=== PATIENT | female | born 1995 | race Caucasian/White ===

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

== ENCOUNTER → 2017-02-26 | Outpatient (REF) | payer OTHER ==
[2017-02-28 14:08] LABS: Candida species Negative (Negative); Gardnerella vaginalis Positive (Negative); Trichamonas vaginalis Negative (Negative)
== END ==
LOC: M LAB REF 16:08
PROVIDERS: ATTEND Nurse Practitioner Women's Health
DX: R30.0 Dysuria (principal); N76.0 Acute vaginitis

== ENCOUNTER → 2017-04-09 | Outpatient (CLI) | payer OTHER ==
[2017-04-09 08:50] LABS: MEAN CORPUSCULAR HEMOGLOBIN 30.1 pg (27.0-33.0); MEAN CORPUSCULAR HGB CONC 34.6 g/dl (32.0-36.5); MEAN CORPUSCULAR VOLUME 86.9 fl (80.0-96.0); RED CELL DISTRIBUTION WIDTH 11.6 % (11.5-14.5); WHITE BLOOD COUNT 7.1 10^3/uL (4.0-10.0)
[2017-04-09 09:25] LABS: ANION GAP 10 MEQ/L (8-16); BLOOD UREA NITROGEN 10 MG/DL (7-18); CALCIUM LEVEL 9.4 MG/DL (8.5-10.1); CARBON DIOXIDE LEVEL 28 MEQ/L (21-32); CHLORIDE LEVEL 103 MEQ/L (98-107); CREATININE FOR GFR 0.78 MG/DL (0.55-1.02); GLUCOSE, FASTING 80 MG/DL (70-105); POTASSIUM SERUM 3.7 MEQ/L (3.5-5.1); SODIUM LEVEL 141 MEQ/L (136-145); T UPTAKE 34 % (30-39); THYROXINE (T4) 8.9 UG/DL (6.0-11.6)
== END ==
LOC: M LAB 08:17
PROVIDERS: ATTEND Nurse Practitioner Family
DX: R53.83 Other fatigue (principal)

== ENCOUNTER → 2017-12-03 | Outpatient (REF) | payer OTHER | LOC: M SFHCCLAY 12-06 11:26 | DX: R30.0 Dysuria (principal); N76.0 Acute vaginitis | CPT/HCPCS: 87086 ==

== ENCOUNTER → 2017-12-16 | Outpatient (REF) | payer OTHER ==
[2017-12-17 14:28] LABS: CHLAMYDIA DNA AMPLIFICATION NEGATIVE (NEGATIVE); GC DNA AMPLIFICATION NEGATIVE (NEGATIVE)
== END ==
LOC: M SFHCCLAY 15:10
DX: N76.1 Subacute and chronic vaginitis (principal)

== ENCOUNTER → 2018-01-08 | Outpatient (REF) | payer OTHER ==
[2018-01-08 20:03] LABS: CHLAMYDIA DNA AMPLIFICATION NEGATIVE (NEGATIVE); GC DNA AMPLIFICATION NEGATIVE (NEGATIVE)
== END ==
LOC: M LAB REF 16:52
DX: N76.0 Acute vaginitis (principal)

== ENCOUNTER → 2018-01-18 | Outpatient (CLI) | payer OTHER ==
[2018-01-18 12:52] LABS: BASO % 0.3 % (0.0-1.0); EOS # 0.1 10^3/uL (0.0-0.50); HEMATOCRIT 37.3 % (36.0-47.0); HEMOGLOBIN 13.3 g/dl (12.0-15.5); IMMATURE GRANULOCYTE % 0.4 % (0-3.0); LYMPH # 1.8 10^3/uL (1.5-6.5); LYMPH % 17.2 % (24.0-44.0); MEAN CORPUSCULAR HEMOGLOBIN 30.9 pg (27.0-33.0); MEAN CORPUSCULAR HGB CONC 35.7 g/dl (32.0-36.5); MEAN CORPUSCULAR VOLUME 86.5 fl (80.0-96.0); MONO # 0.5 10^3/uL (0.0-0.8); NEUTROPHILS # 7.9 10^3/uL (1.8-7.7); NEUTROPHILS % 76.1 % (36.0-66.0); PLATELET COUNT, AUTOMATED 294 10^3/uL (150-450); RED BLOOD COUNT 4.31 10^6/uL (4.00-5.40); RED CELL DISTRIBUTION WIDTH 11.6 % (11.5-14.5); WHITE BLOOD COUNT 10.3 10^3/uL (4.0-10.0)
[2018-01-18 14:40] LABS: CHLAMYDIA DNA AMPLIFICATION NEGATIVE (NEGATIVE); GC DNA AMPLIFICATION NEGATIVE (NEGATIVE)
[2018-01-19 11:44] LABS: RUBELLA IgG QUALITATIVE IMMUNE (IMMUNE)
[2018-01-19 12:15] LABS: HEPATITIS C VIRUS ABY INDEX 0.3 INDEX (<0.8)
[2018-01-19 14:20] LABS: HBsAg Prenatal NEGATIVE (NEGATIVE)
[2018-01-19 14:48] LABS: HIV 1&2 SCREEN CENTAUR NEGATIVE (NEGATIVE)
== END ==
LOC: M LAB 12:28
DX: O30.041 Twin pregnancy, dichorionic/diamniotic, first trimester (principal); Z3A.08 8 weeks gestation of pregnancy
CPT/HCPCS: 86762

== ENCOUNTER 2018-02-16 13:37 | Emergency (ER) | payer OTHER, MEDICAID ==
[2018-02-16 14:25] LABS: BASO % 0.3 % (0.0-1.0); EOS # 0.2 10^3/uL (0.0-0.50); EOS % 1.4 % (0.0-3.0); HEMATOCRIT 35.8 % (36.0-47.0); HEMOGLOBIN 12.8 g/dl (12.0-15.5); IMMATURE GRANULOCYTE % 0.4 % (0-3.0); LYMPH # 1.8 10^3/uL (1.5-6.5); LYMPH % 15.8 % (24.0-44.0); MEAN CORPUSCULAR HEMOGLOBIN 30.8 pg (27.0-33.0); MEAN CORPUSCULAR HGB CONC 35.8 g/dl (32.0-36.5); MEAN CORPUSCULAR VOLUME 86.1 fl (80.0-96.0); MONO # 0.6 10^3/uL (0.0-0.8); NEUTROPHILS # 8.9 10^3/uL (1.8-7.7); NEUTROPHILS % 77.1 % (36.0-66.0); PLATELET COUNT, AUTOMATED 298 10^3/uL (150-450); RED BLOOD COUNT 4.16 10^6/uL (4.00-5.40); RED CELL DISTRIBUTION WIDTH 11.9 % (11.5-14.5); WHITE BLOOD COUNT 11.5 10^3/uL (4.0-10.0)
[2018-02-16 14:43] LABS: ANION GAP 8 MEQ/L (8-16); BLOOD UREA NITROGEN 6 MG/DL (7-18); CALCIUM LEVEL 8.8 MG/DL (8.5-10.1); CARBON DIOXIDE LEVEL 25 MEQ/L (21-32); CHLORIDE LEVEL 106 MEQ/L (98-107); CREATININE FOR GFR 0.61 MG/DL (0.55-1.30); GLUCOSE, FASTING 98 MG/DL (70-100); POTASSIUM SERUM 3.9 MEQ/L (3.5-5.1); SODIUM LEVEL 139 MEQ/L (136-145)
[2018-02-16 14:52] LABS: KETONE, URINE AUTO RFX NEGATIVE (NEGATIVE); LEUKOCYTE ESTERASE UR AUTO RFX NEGATIVE (NEGATIVE); NITRITE, URINE AUTO RFX NEGATIVE (NEGATIVE); RBC, URINE AUTO RFX 1 /HPF (0-3); SPECIFIC GRAVITY UR AUTO RFX 1.006 (1.002-1.035); SQUAM EPITHELIAL CELL UR AURFX 3 /HPF (0-6); WBC, URINE AUTO RFX 3 /HPF (0-3)
[2018-02-16] MEDS: METOCLOPRAMIDE INJ 10MG/2ML VIAL (J2765) IV (16:47)
[2018-02-16] MEDS: NS 1,000 ML IV (16:49)
== END 2018-02-16 18:20 | disposition home or self-care (01) ==
LOC: M ED 13:37
DX: O26.891 Other specified pregnancy related conditions, first trimester (principal); R10.2 Pelvic and perineal pain; Z3A.13 13 weeks gestation of pregnancy; O99.281 Endocrine, nutritional and metabolic diseases complicating pregnancy, first trimester; E86.0 Dehydration; Z79.899 Other long term (current) drug therapy
CPT/HCPCS: J2765

== ENCOUNTER → 2018-03-14 | Outpatient (REF) | payer OTHER ==
[2018-03-14 17:55] LABS: AMORPHOUS SEDIMENT MODERATE (NEGATIVE); APPEARANCE, URINE CLOUDY (CLEAR); BACTERIA, URINE AUTO 1+ (NEGATIVE); BILIRUBIN, URINE AUTO NEGATIVE (NEGATIVE); BLOOD, URINE BLOOD NEGATIVE (NEGATIVE); COLOR, URINE YELLOW (YELLOW); GLUCOSE, URINE (UA) AUTO NEGATIVE (NEGATIVE); KETONE, URINE AUTO NEGATIVE (NEGATIVE); LEUKOCYTE ESTERASE, URINE AUTO NEGATIVE (NEGATIVE); MUCUS, URINE SMALL (NEGATIVE); NITRITE, URINE AUTO NEGATIVE (NEGATIVE); PROTEIN, URINE AUTO NEGATIVE (NEGATIVE); RBC, URINE AUTO 0 /HPF (0-3); SPECIFIC GRAVITY URINE AUTO 1.015 (1.002-1.035); SQUAMOUS EPITHELIAL CELL UR AU 2 /HPF (0-6); UROBILINOGEN, URINE AUTO 0.2 mg/dL (0.0-2.0); WBC, URINE AUTO 0 /HPF (0-3)
[2018-03-14 21:06] LABS: CHLAMYDIA DNA AMPLIFICATION NEGATIVE (NEGATIVE); GC DNA AMPLIFICATION NEGATIVE (NEGATIVE)
== END ==
LOC: M SFHCCLAY 11:55
DX: R30.0 Dysuria (principal); N89.8 Other specified noninflammatory disorders of vagina
CPT/HCPCS: 81001

== ENCOUNTER → 2018-03-24 | Outpatient (CLI) | payer OTHER | LOC: M RAD 09:58 | DX: Z34.82 Encounter for supervision of other normal pregnancy, second trimester (principal) ==

== ENCOUNTER → 2018-04-13 | Outpatient (CLI) | payer OTHER, MEDICAID | LOC: M RAD 11:07 | DX: O30.042 Twin pregnancy, dichorionic/diamniotic, second trimester (principal); Z3A.20 20 weeks gestation of pregnancy | CPT/HCPCS: 76816 ==

== ENCOUNTER → 2018-05-06 | Outpatient (CLI) | payer OTHER | LOC: M RAD 10:23 | DX: O30.042 Twin pregnancy, dichorionic/diamniotic, second trimester (principal); Z3A.24 24 weeks gestation of pregnancy | CPT/HCPCS: 76816 ==

== ENCOUNTER → 2018-05-12 | Outpatient (CLI) | payer OTHER, MEDICAID ==
[2018-05-12 13:06] LABS: HEMATOCRIT 31.7 % (36.0-47.0); HEMOGLOBIN 10.9 g/dl (12.0-15.5); MEAN CORPUSCULAR HGB CONC 34.4 g/dl (32.0-36.5); MEAN CORPUSCULAR VOLUME 87.3 fl (80.0-96.0); PLATELET COUNT, AUTOMATED 309 10^3/uL (150-450); RED BLOOD COUNT 3.63 10^6/uL (4.00-5.40); RED CELL DISTRIBUTION WIDTH 11.9 % (11.5-14.5)
[2018-05-12 13:22] LABS: GLUCOSE CHALLENGE TEST 1 HOUR 127 MG/DL (LESS THAN 140)
== END ==
LOC: M LAB 11:03
DX: O30.042 Twin pregnancy, dichorionic/diamniotic, second trimester (principal); Z3A.00 Weeks of gestation of pregnancy not specified
CPT/HCPCS: 82950

== ENCOUNTER → 2018-06-03 | Outpatient (CLI) | payer OTHER | LOC: M RAD 10:14 | DX: O30.042 Twin pregnancy, dichorionic/diamniotic, second trimester (principal); O32.2XX2 Maternal care for transverse and oblique lie, fetus 2; Z3A.27 27 weeks gestation of pregnancy | CPT/HCPCS: 76816 ==

== ENCOUNTER → 2018-06-24 | Outpatient (CLI) | payer OTHER ==
[~2018-06-24] MED LIST: IRON27TA2 PO; OMEP40CA2 PO; PREN27TA3 PO; RANI1SYP PO; TUMS500C PO
--- NOTE | 2018-06-24 12:45 | REP ---
Clinical: Twin gestation. Growth evaluation Comparison: 06/03/2018 . Findings: Examination demonstrates diamniotic dichorionic twin gestation. Cervix measures 3.1 cm in length and appears closed. Concordant growth is noted. Gestational age by LMP at 31 weeks 1 day with estimated date of delivery 08/25/2018 . TWIN A: Twin A identified in cephalic presentation along the maternal left side. Placenta is noted posterior fundal and grade 0 without evidence for placenta previa or abruption. motion is appreciated. Amniotic fluid volume is normal and the deepest pocket measures 3.6 cm. FHR equals 152 beats per minute. BPD 8.4 cm 33 weeks 5 days HC 30.1 cm 33 weeks 3 days AC 26.1 cm 30 weeks 2 days FL 5.7 cm 29 weeks 6 days HL 5.3 cm 30 weeks 4 days HC/AC ratio 1.15 Gestational age by current measurements: 31 weeks 4 days . Estimated weight 1616 grams ( 34th percentile). Limited anatomical assessment without obvious abnormality. ------- TWIN B: Twin B identified in transverse (head to maternal left) presentation along the maternal right side. Placenta is noted posterior fundal and grade 0 without evidence for placenta previa or abruption. motion is appreciated. Amniotic fluid volume is normal and the deepest pocket measures 4.4 cm. FHR equals 156 beats per minute. BPD 7.8 cm 31 weeks 2 days HC 29.2 cm 32 weeks 1 day AC 26.5 cm 30 weeks 4 days FL 5.4 cm 28 weeks 3 days HL 4.7 cm 27 weeks 6 days HC/AC ratio 1.10 Gestational age by current measurements: 30 weeks 0 days . Estimated weight 1512 grams ( 22nd percentile). Limited anatomical assessment without obvious abnormality. Impression: Diamniotic dichorionic twin gestation demonstrating appropriate concordant growth. No gross abnormalities are identified. Electronically Signed by Mitul Santillan MD 06/24/2018 12:36 P
== END ==
LOC: M RAD 11:24
PROVIDERS: ATTEND Obstetrics & Gynecology
DX: O30.042 Twin pregnancy, dichorionic/diamniotic, second trimester (principal); Z3A.31 31 weeks gestation of pregnancy

== ENCOUNTER → 2018-07-13 | Outpatient (CLI) | payer OTHER ==
--- NOTE | 2018-07-14 02:03 | REP ---
Clinical: Twin gestation. Growth evaluation Comparison: 06/24/2018 . Findings: Examination demonstrates diamniotic dichorionic twin gestation. Cervix appears closed. Concordant growth is noted. Gestational age by LMP at 33 weeks 6 days with estimated date of delivery 08/25/2018 . TWIN A: Twin A identified in cephalic presentation along the maternal left side. Placenta is noted fundal and grade grade II without evidence for placenta previa or abruption. motion is appreciated. Amniotic fluid volume is normal and the deepest pocket measures 4.0 cm. FHR equals 157 beats per minute. BPD 9.0 cm 36 weeks 3 days HC 31.3 cm 35 weeks 0-day AC 27.4 cm 31 weeks 3 days FL 6.0 cm 31 weeks 2 days HL 5.3 cm 38 weeks 6 days HC/AC ratio 1.14 Gestational age by current measurements: 33 weeks 0 days . Estimated weight 1915 grams ( 15th percentile). Biophysical profile score equals 6/8 (breathing 0). Umbilical cord SD ratio: 2.37 ------- TWIN B: Twin B identified in breech presentation along the maternal right side. Placenta is noted fundal and grade grade II without evidence for placenta previa or abruption. motion is appreciated. Amniotic fluid volume is normal and the deepest pocket measures 3.4 cm. FHR equals 155 beats per minute. BPD 8.4 cm 33 weeks 6 days HC 29.9 cm 33 weeks 0 day AC 27.8 cm 31 weeks 6 day FL 6.0 cm 31 weeks 0 days HL 5.1 cm 29 weeks 5 days HC/AC ratio 1.07 Gestational age by current measurements: 31 weeks 6 days . Estimated weight 1857 grams ( 10th percentile). Biophysical profile score equals 8/8. Umbilical cord SD ratio: 2.00 Impression: 1. Diamniotic dichorionic twin gestation demonstrating less than expected but concordant growth. 2. Twin A biophysical profile score equals 6/8 (breathing - 0) Electronically Signed by Mitul Santillan MD 07/14/2018 01:54 A
== END ==
LOC: M RAD 09:33
PROVIDERS: ATTEND Obstetrics & Gynecology
DX: O30.043 Twin pregnancy, dichorionic/diamniotic, third trimester (principal); Z3A.33 33 weeks gestation of pregnancy; O32.1XX2 Maternal care for breech presentation, fetus 2

== ENCOUNTER 2018-07-17 14:31 | Outpatient (CLI) | payer OTHER ==
[~2018-07-17] VITALS: Ht 165.1 cm; Wt 102.6 kg
== END 2018-07-17 16:30 | disposition home or self-care (01) ==
LOC: M LDO 14:31
PROVIDERS: ATTEND Specialist
DX: O26.893 Other specified pregnancy related conditions, third trimester (principal); Z3A.34 34 weeks gestation of pregnancy; R60.0 Localized edema
CPT/HCPCS: 59025; G0378; G0463

== ENCOUNTER → 2018-07-20 | Outpatient (CLI) | payer OTHER ==
[~2018-07-20] MED LIST changes: +COLA100C5 PO; +DIFL150T PO; +IBUP80TA PO; +METR375C3 PO; +OXYC1TAB23 PO; +PERCOCET PO; +PRENTAB9 PO; +ZANTTAB PO
--- NOTE | 2018-07-20 23:00 | REP ---
Clinical: Twin gestation. well-being Comparison: 07/13/2018 . Findings: Examination demonstrates diamniotic dichorionic twin gestation. Cervix appears closed. Gestational age by LMP at 34 weeks 6 days with estimated date of delivery 08/25/2018 . TWIN A: Twin A identified in cephalic presentation along the maternal left side. Placenta is noted fundal and grade II without evidence for placenta previa or abruption. motion is appreciated. Amniotic fluid volume is normal and the deepest pocket measures 6.2 cm. FHR equals 153 beats per minute. BPP 8/8. Umbilical cord SD ratio: 2.33 ------- TWIN B: Twin B identified in breech presentation along the maternal right side. Placenta is noted fundal and grade II without evidence for placenta previa or abruption. motion is appreciated. Amniotic fluid volume is normal and the deepest pocket measures 5.5 cm. FHR equals 147 beats per minute. BPP 8/8 Umbilical cord SD ratio: 2.87 Impression: Diamniotic dichorionic twin gestation demonstrating normal amniotic fluid volumes and normal biophysical profile scores. Electronically Signed by Mitul Santillan MD 07/20/2018 10:51 P
== END ==
LOC: M RAD 09:06
PROVIDERS: ATTEND Obstetrics & Gynecology
DX: O30.043 Twin pregnancy, dichorionic/diamniotic, third trimester (principal); Z3A.34 34 weeks gestation of pregnancy

== ENCOUNTER → 2018-07-21 | Outpatient (REF) | payer OTHER ==
[2018-07-21 15:18] LABS: CHLAMYDIA DNA AMPLIFICATION NEGATIVE (NEGATIVE); GC DNA AMPLIFICATION NEGATIVE (NEGATIVE)
== END ==
LOC: M LAB REF 12:54
PROVIDERS: ATTEND Advanced Practice Midwife
DX: Z34.83 Encounter for supervision of other normal pregnancy, third trimester (principal); Z11.3 Encounter for screening for infections with a predominantly sexual mode of transmission

== ENCOUNTER 2018-07-22 14:11 | Outpatient (CLI) | payer OTHER ==
[~2018-07-22] VITALS: Ht 165.1 cm; Wt 104.1 kg
[~2018-07-22 14:11] MED LIST changes: -COLA100C5 PO; -DIFL150T PO; -IBUP80TA PO; -METR375C3 PO; -OXYC1TAB23 PO; -PERCOCET PO; -PRENTAB9 PO; -ZANTTAB PO
[2018-07-22 14:47] VITALS: BP 121/81
[2018-07-22] MEDS ORDERED: METR375C3 PO (14:50)
[2018-07-22] MEDS ORDERED: DIFL150T PO (14:53)
[2018-07-22 15:33] VITALS: BP 125/72
[2018-07-22 17:21] VITALS: BP 132/68
[2018-07-22 18:44] VITALS: BP 112/67
--- NOTE | 2018-07-22 19:11 | REPVR ---
EXAM: US Biophysical Profile Without Non-Stress Test EXAM DATE/TIME: 07/22/2018 5:55 PM CLINICAL HISTORY: 22 years old, female; Signs and symptoms; Other: ? Prom? ; ; Additional info: Twin gestation, R/O lof TECHNIQUE: US biophysical profile without non-stress testing. COMPARISON: US BPP W/O NON STRESS TEST 07/20/2018 9:13 AM FINDINGS: Breathin/2 fetus A and B Gross body movements: 2/2 fetus A and B tone: 2/2 fetus A and B Qualitative amniotic fluid: 2/2 fetus A and B heart rate 144 beats per minute for fetus A and 150 beats per minute for fetus B IMPRESSION: 8 out of 8 for both fetus A and B. Electronically signed by: Johnie Esquivel On 07/22/2018 19:10:36 PM
[2018-07-22 19:21] VITALS: BP 138/71
--- NOTE | 2018-07-22 19:23 | IPNPDOC ---
Text Note Date of Service The patient was seen on 07/22/18. NOTE 22yo G1 MACARIO 08/25/18, di/di twin gestation. . Evaluated in office yesterday to r/o ROM. Found to have BV and yeast. Currently tx with metronidazole and diflucan Reports continued questionable LOF. States sporadic UC SSE copious creamy discharge, pH 4.5, + hyphae, + clue Neg ferning BPP 8/8 x 2 with qualitative adequate fluid Per consult Dr Jiménez, discharged home. Pt instructed to keep appt . After hours access, PTL, daily FKC, wanrings reviewed. VS,Fishbone, I+O VS, Fishbone, I+O Vital Signs Date Time Temp Pulse Resp B/P (MAP) Pulse Ox O2 Delivery O2 Flow Rate FiO2 07/22/18 17:21 87 18 132/68 (89) 07/22/18 14:47 98.8 Caprice Beltran CNM Jul 22, 2018 19:23
== END 2018-07-22 19:25 | disposition home or self-care (01) ==
LOC: M LDO 14:11
PROVIDERS: ATTEND Advanced Practice Midwife
DX: O23.593 Infection of other part of genital tract in pregnancy, third trimester (principal); Z79.2 Long term (current) use of antibiotics; O30.043 Twin pregnancy, dichorionic/diamniotic, third trimester; Z3A.00 Weeks of gestation of pregnancy not specified
CPT/HCPCS: 59025; 76815; 76819; 76820; G0378; G0463

== ENCOUNTER → 2018-07-26 | Outpatient (CLI) | payer OTHER ==
[~2018-07-26] MED LIST changes: +DIFL150T PO; +METR375C3 PO; +ZANTTAB PO
--- NOTE | 2018-07-26 16:16 | REP ---
TWIN OB ULTRASOUND AND BIOPHYSICAL PROFILE: Real-time sonographic evaluation of the gravid uterus is performed. There is a living diamniotic dichorionic twin gestation. Placentas are anterior and fundal and are grade 2 with no previa or abruption. FETUS A: heart rate 153 beats per minute. Amniotic fluid appears within normal limits with the deepest pocket of fluid 8.9 cm. Biophysical profile score 8/8. S/D ratio 2.60 and RI 0.62. position vertex on the maternal left side. FETUS B: heart rate 150 beats per minute. Amniotic fluid within normal limits with deepest pocket of fluid 6.0. Biophysical profile score 8/8. S/D ratio 2.48 and RI 0.60. position breech on the maternal right side. Electronically Signed by Lior Call MD 07/26/2018 04:23 P
== END ==
LOC: M RAD 15:29
PROVIDERS: ATTEND Obstetrics & Gynecology
DX: O30.043 Twin pregnancy, dichorionic/diamniotic, third trimester (principal); O32.1XX2 Maternal care for breech presentation, fetus 2

== ENCOUNTER → 2018-08-01 | Outpatient (CLI) | payer OTHER ==
--- NOTE | 2018-08-02 04:39 | REP ---
Clinical: Twin gestation. well-being Comparison: 07/26/2018 . Findings: Examination demonstrates diamniotic dichorionic twin gestation. Cervix appears closed. Gestational age by LMP at 36 weeks 4 days with estimated date of delivery 08/25/2018 . TWIN A: Twin A identified in cephalic presentation along the maternal left side. Placenta is noted anterofundal and grade II/III without evidence for placenta previa or abruption. motion is appreciated. Amniotic fluid volume is normal and the deepest pocket measures 4.2 cm. FHR equals 153 beats per minute. BPP 8/8. Umbilical cord SD ratio: 2.34 ------- TWIN B: Twin B identified in breech presentation along the maternal right side. Placenta is noted anterofundal and grade II/III without evidence for placenta previa or abruption. motion is appreciated. Amniotic fluid volume is normal and the deepest pocket measures 5.6 cm. FHR equals 144 beats per minute. BPP 8/8 Umbilical cord SD ratio: 3.22 Impression: Diamniotic dichorionic twin gestation demonstrating normal amniotic fluid volumes and normal biophysical profile scores. Electronically Signed by Mitul Santillan MD 08/02/2018 04:30 A
== END ==
LOC: M RAD 07:56
PROVIDERS: ATTEND Obstetrics & Gynecology
DX: O30.043 Twin pregnancy, dichorionic/diamniotic, third trimester (principal)

== ENCOUNTER 2018-08-04 05:17 | Inpatient (IN) | payer OTHER ==
[2018-08-04] VITALS (8 sets, daily range): BP systolic 115–137; BP diastolic 57–86
[~2018-08-04] VITALS: Ht 165.1 cm; Wt 106.6 kg
[2018-08-04] MEDS ORDERED: COLA100C5 PO ×2 (05:34→09:13)
[2018-08-04] MEDS ORDERED: BICITRA 30ML SOLN UDC PO ONE (06:00)
[2018-08-04] MEDS ORDERED: LR 1,000 ML IV ONE (06:00)
[2018-08-04 06:25] LABS: HEMATOCRIT 30.3 % (36.0-47.0); HEMOGLOBIN 9.8 g/dl (12.0-15.5); MEAN CORPUSCULAR HGB CONC 32.3 g/dl (32.0-36.5); MEAN CORPUSCULAR VOLUME 74.1 fl (80.0-96.0); PLATELET COUNT, AUTOMATED 293 10^3/uL (150-450); RED BLOOD COUNT 4.09 10^6/uL (4.00-5.40); WHITE BLOOD COUNT 12.9 10^3/uL (4.0-10.0)
[2018-08-04] MEDS ORDERED: LR 1,000 ML IV SCH (07:00)
[2018-08-04] MEDS ORDERED: MORPHINE PRES-FREE INJ 10 MG/10 ML VIAL (J2274) As Ordered ONE (08:02)
[2018-08-04] MEDS ORDERED: OXYTOCIN DRIP 30 UNITS in APPROPRIATE DILUENT 1 EA IV SCH (08:02)
[2018-08-04] MEDS ORDERED: OXYTOCIN INJ 10 UNITS/ML VIAL (J2590) As Ordered ONE (08:02)
[2018-08-04] MEDS ORDERED: diphenhydrAMINE INJ 50MG/ML VIAL (J1200) IV PRN (08:04)
[2018-08-04] MEDS ORDERED: METOCLOPRAMIDE INJ 10MG/2ML VIAL (J2765) IV PRN (08:04)
[2018-08-04] MEDS ORDERED: NALOXONE INJ 0.4 MG/1 ML VIAL (J2310) IV PRN ×2 (08:04)
[2018-08-04] MEDS ORDERED: NALBUPHINE HCL 10 MG/ML AMP (J2300) IV PRN (08:04)
[2018-08-04] MEDS ORDERED: ONDANSETRON 4MG/2ML VIAL (J2405) IV PRN ×3 (08:04→09:30)
[2018-08-04] MEDS ORDERED: PHENYLephrine HCL 500 MCG/5 ML (100MCG/ML) SYRINGE (J2370) As Ordered ONE (08:08)
--- NOTE | 2018-08-04 08:09 | NUR ---
Operative Note Date of procedure: 08/04/18 Procedure: Primary low-transverse section Anesthesia: Spinal w/ Duramorph Preoperative diagnoses: 37+0 weeks gestation Di/Di twin gestation growth restriction of Twin B malpresentation Postoperative diagnoses: same Indication: 23yo with di/di twins. 37+0 weeks. growth restriction of Twin B. Vertex/Breech presentation. Primary surgeon: Seymour Jiménez D.O., F. A.C.OKatelynnG. Physician Coder: Ward Jose MD FACOG (essential role in surgical site exposure and delivery of both twins) Estimated blood loss: 600 ml IV fluids administered: 1700 ml crystalloid Drains: Boles catheter. Urine output: 200 ml [place] data: Twin A, Female Apgars 9 and 9. Birthweight 2330g , 5lbs 2oz. Twin B, Apgars 9 and 9. Birthweight Female 1820g, 4lbs 0oz. Preoperative/prophylactic antibiotics: Ancef 2 g IV (given within 30 minutes prior to surgical start time). Intraoperative findings: Vertex / breech presentation. Normal uterus and bilateral adnexa/ovaries. Specimen(s): Placenta (dichorionic/diamniotic) Procedure: The patient was counseled and consented on the risks, benefits, indications and alternatives of the procedure. Informed consent was obtained and placed in the c cole. She was taken to the operating room with an IV running. She was placed on the operating table. Spinal anesthesia was administered without any difficulty and found to be adequate. She was placed in the dorsal supine position with a leftward tilt. Sequential compression devices were placed on the lower extremities. A Boles catheter was placed under sterile conditions. She was sterilely prepped and draped. A surgical timeout was performed per protocol. Spinal anesthesia was again found to be adequate. Using the 10 blade a Pfannenstiel incision was performed. The 10 blade was used to dissect down to the level of the rectus sheath fascia. The rectus sheath fas karlene was incised at the midline, and the fascial incision was extended with Cherry scissors. Remi clamps were used to grasp the superior and inferior aspect of the fascial incision and the rectus muscle bellies were dissected off sharply and bluntly. The midline was identified and the rectus muscle bellies were manually . The peritoneum was identified and clamped with hemostats and elevated. The peritoneum was then incised with Metzenbaum scissors. Entry into the intraperitoneal cavity was achieved. The peritoneal opening was extended with manual stretch . There was good visualization of both the bladder and the lower uterine segment. The bladder retractor was placed. The vesicouterine peritoneum was dissected with Metzenbaum scissors and blunt dissection. Bladder retractor was repositioned. A low transverse uterine incision was made with a new 10 blade. The hysterotomy was extended with manual stretch. The amniotic sac of Twin A was protruding and then artificially ruptured. Clear amniotic fluid was noted. The baby's head delivered through the hysterotomy with ease. The remainder of the body delivered with ease. The cord was doubly clamped and cut and the baby was handed off to awaiting care. The amniotic sac of Twin B was pro truding and then artificially ruptured. Clear amniotic fluid was noted. The baby was in graham breech position. The breech delivered through the hysterotomy with ease. The remainder of the body and head delivered with ease with minimal use of classic breech maneuvers. The cord was doubly clamped and cut and the baby was handed off to awaiting care.See data above. The placenta was manually removed and noted to be fully intact. The uterus was exteriorized. The intrauterine cavity was cleared of all clot and debris with a laparotomy sponge. The hysterotomy was closed with 0 Vicryl in running, locked fashion. A second imbricating closure was performed over the initial layer closure using 0 Vicryl. The hysterotomy was noted to be hemostatic. The posterior cul-de-sac was irrigated and cleared of all clot and debris. The uterus was replaced back into the abdomen. The paracolic gutters were cleared of all clot and debris with damp laparotomy sponges. The hysterotomy is reinspec juan and noted to be hemostatic. Sponge, needle and instrument counts were correct. The peritoneum was closed with 2-0 Vicryl in running fashion. The rectus muscle bellies were noted to be hemostatic. The fascia was closed with 0 Vicryl in running fashion. Sponge, needle and instrument counts were again correct. The subcutaneous layer was irrigated. Small subcutaneous bleeders were cauterized with Bovie. The subcutaneous layer was reapproximated with 3-0 Vicryl in running fashion. The skin was closed with 2-0 Monocryl in subcuticular fashion. A bandage was placed over the closed incision. The final sponge, instrument and needle count was correct. She tolerated the entire procedure very well. She was transferred to the PACU in good and stable condition. Dr. Seymour Jiménez D.O., [email or web address].G
[2018-08-04] MEDS ORDERED: RHOGAM 300 MCG (1500 IU) INJ (J2790) IM SCH (08:15)
[2018-08-04] MEDS ORDERED: PERCOCET 5MG/325MG TAB PO PRN (08:15)
[2018-08-04] MEDS ORDERED: PROMETHAZINE 25 MG TAB PO PRN (08:15)
[2018-08-04] MEDS ORDERED: MEASLES,MUMPS,RUBELLA VACCINE INJ (MMR-II) (90707) SC SCH (08:15)
[2018-08-04] MEDS ORDERED: KETOROLAC 60 MG/2 ML VIAL (J1885) As Ordered ONE (08:22)
[2018-08-04] MEDS ORDERED: ONDANSETRON 4MG/2ML VIAL (J2405) As Ordered ONE ×2 (08:22→10:40)
[2018-08-04] MEDS ORDERED: fentaNYL 100 MCG/2 ML INJECTION (J3010) As Ordered ONE (08:39)
[2018-08-04] MEDS: FAMOTIDINE 20 MG TAB PO SCH ×2 (09:00→21:32)
[2018-08-04] MEDS: PRENATAL VITAMINS CHEWABLE TABLET PO SCH (09:00)
[2018-08-04] MEDS: DOCUSATE SODIUM 100 MG CAP PO SCH ×2 (09:00→21:32)
[2018-08-04] MEDS ORDERED: PERCOCET PO (09:11)
[2018-08-04] MEDS ORDERED: IBUP80TA PO (09:12)
[2018-08-04] MEDS ORDERED: OXYTOCIN 30 UNITS IN 0.9% NaCl 500ML IV BAG (J2590) As Ordered ONE (09:14)
[2018-08-04] MEDS ORDERED: CALCIUM CARBONATE 500 MG CHEW U/D PO PRN (09:15)
[2018-08-04] MEDS ORDERED: MEPERIDINE INJ 25 MG/ML VIAL (J2175) IV PRN (09:30)
[2018-08-04] MEDS ORDERED: fentaNYL 100 MCG/2 ML INJECTION (J3010) IV PRN (09:30)
[2018-08-04] MEDS ORDERED: NORCO, ANEXSIA 5/325MG TABLET (HYDROcodone/ACETAMINOPHEN) PO PRN (09:30)
[2018-08-04] MEDS: LR 1,000 ML IV SCH ×2 (09:57→16:02)
[2018-08-04] MEDS: KETOROLAC 30 MG/ML VIAL (J1885) IV SCH ×2 (14:51→21:32)
[2018-08-05 02:06] VITALS: BP 122/61
[2018-08-05] MEDS: KETOROLAC 30 MG/ML VIAL (J1885) IV SCH (02:46)
[2018-08-05 06:18] VITALS: BP 102/52
[2018-08-05 07:09] LABS: HEMATOCRIT 22.1 % (36.0-47.0); MEAN CORPUSCULAR HEMOGLOBIN 24.1 pg (27.0-33.0); MEAN CORPUSCULAR HGB CONC 32.1 g/dl (32.0-36.5); MEAN CORPUSCULAR VOLUME 75.2 fl (80.0-96.0); PLATELET COUNT, AUTOMATED 232 10^3/uL (150-450); RED BLOOD COUNT 2.94 10^6/uL (4.00-5.40); WHITE BLOOD COUNT 11.8 10^3/uL (4.0-10.0)
[2018-08-05 07:16] LABS: HEMOGLOBIN 7.1 g/dl (12.0-15.5)
[2018-08-05] MEDS: PRENATAL VITAMINS CHEWABLE TABLET PO SCH (08:20)
[2018-08-05] MEDS: FAMOTIDINE 20 MG TAB PO SCH ×2 (08:20→21:06)
[2018-08-05] MEDS: DOCUSATE SODIUM 100 MG CAP PO SCH ×2 (08:20→21:06)
[2018-08-05] MEDS: PERCOCET 5MG/325MG TAB PO PRN ×3 (08:21→21:07)
[2018-08-05 09:00] VITALS: BP 110/60
[2018-08-05] MEDS ORDERED: ADACEL/BOOSTRIX VACCINE (DIPHTH/PERTUSS/ACELL/TETANUS)0.5ML SYR (90715) IM ONE (09:00)
[2018-08-05] MEDS: FERROUS GLUCONATE 324 MG TAB PO SCH ×3 (09:00→21:06)
[2018-08-05] MEDS: IBUPROFEN 800 MG TAB PO SCH ×2 (11:07→19:15)
[2018-08-05 18:38] VITALS: BP 129/67
[2018-08-05 22:00] VITALS: BP 126/65
[2018-08-06 02:00] VITALS: BP 120/56
[2018-08-06] MEDS: IBUPROFEN 800 MG TAB PO SCH ×3 (03:07→18:29)
[2018-08-06 06:17] VITALS: BP 128/72
[2018-08-06] MEDS: FAMOTIDINE 20 MG TAB PO SCH ×2 (08:17→21:36)
[2018-08-06] MEDS: PERCOCET 5MG/325MG TAB PO PRN (08:17)
[2018-08-06] MEDS: DOCUSATE SODIUM 100 MG CAP PO SCH ×2 (08:18→21:37)
[2018-08-06] MEDS: PRENATAL VITAMINS CHEWABLE TABLET PO SCH (09:00)
[2018-08-06] MEDS: FERROUS GLUCONATE 324 MG TAB PO SCH ×3 (09:58→21:37)
--- NOTE | 2018-08-06 10:19 | NUR ---
POD#2 S: Doing well w/o complaints. Tolerating diet, ambulating, voiding and pain well controlled. O: vss, AF gen: well appearing abd: soft, appropriately tender incision: dress ext: neg calf tenderness A/P: POD#2 s/p 1LTCS for twins/breech- stable -continue /postoperative care -d/c plans for tomorrow Izabela Jackson MD
[2018-08-06 18:47] VITALS: BP 137/74
[2018-08-07] MEDS: PERCOCET 5MG/325MG TAB PO PRN (01:18)
[2018-08-07] MEDS: IBUPROFEN 800 MG TAB PO SCH ×2 (03:58→11:25)
[2018-08-07] MEDS ORDERED: valACYclovir HCL 500 MG TAB PO SCH (04:30)
[2018-08-07 05:51] VITALS: BP 129/58
[2018-08-07] MEDS: PRENATAL VITAMINS CHEWABLE TABLET PO SCH (08:31)
[2018-08-07] MEDS: DOCUSATE SODIUM 100 MG CAP PO SCH (08:31)
[2018-08-07] MEDS: FERROUS GLUCONATE 324 MG TAB PO SCH (08:31)
[2018-08-07] MEDS: FAMOTIDINE 20 MG TAB PO SCH (08:31)
[2018-08-07] MEDS ORDERED: OXYC1TAB23 PO (11:08)
[2018-08-07] MEDS ORDERED: PRENTAB9 PO (11:08)
--- NOTE | 2018-08-07 21:32 | DSES ---
DATE OF ADMISSION: 08/04/2018 DATE OF DISCHARGE: 08/07/2018 DISCHARGE DIAGNOSIS: Primary section for dichorionic diamniotic twin with breech presentation. DISCHARGE CONDITION: Stable. PROCEDURES PERFORMED WHILE IN HOSPITAL: 1. Spinal anesthesia. 2. section. HISTORY AND HOSPITAL COURSE: This patient presented for a scheduled section on 08/04/2018, was productive of two female infants. weights were 5 pounds and 2 ounces and 4 pounds. Estimated blood loss was 600 mL. She did well postoperatively. By postoperative day #3, had met all discharge criteria and was discharged home in stable condition. PHYSICAL EXAMINATION ON DATE OF DISCHARGE: VITAL SIGNS: Stable. She was afebrile. GENERAL APPEARANCE: Well-appearing, no acute distress. ABDOMEN: Soft, appropriately tender. Fundus was below umbilicus. Her incision was dressed. EXTREMITIES: Negative for calf tenderness. DISCHARGE MEDICATIONS: - ibuprofen - Percocet - Colace DISCHARGE INSTRUCTIONS: 1. She was instructed to followup in 2 weeks for an incision check. 2. To report severe pain, heavy vaginal bleeding, fever, or incisional issues. 3. To remain on pelvic rest.
== END 2018-08-07 12:40 | disposition home or self-care (01) | DRG 773 ==
LOC: M LDI 05:17 → M OBS 11:32
PROVIDERS: ADMIT Obstetrics & Gynecology; ATTEND Obstetrics & Gynecology
PROC: 10D00Z1 Extraction of Products of Conception, Low, Open Approach (ICD-10-PCS; principal; 2018-08-04 07:30)
DX: O32.1XX2 Maternal care for breech presentation, fetus 2 (principal); O30.043 Twin pregnancy, dichorionic/diamniotic, third trimester; O36.5932 Maternal care for other known or suspected poor fetal growth, third trimester, fetus 2; Z3A.37 37 weeks gestation of pregnancy; Z37.2 Twins, both liveborn

== ENCOUNTER → 2018-10-27 | Outpatient (REF) | payer OTHER ==
[~2018-10-27] MED LIST changes: +COLA100C5 PO; +IBUP80TA PO; +OXYC1TAB23 PO; +PERCOCET PO; +PRENTAB9 PO
[2018-10-27 20:18] LABS: CHLAMYDIA DNA AMPLIFICATION NEGATIVE (NEGATIVE); GC DNA AMPLIFICATION NEGATIVE (NEGATIVE)
== END ==
LOC: M LAB REF 18:00
PROVIDERS: ATTEND Obstetrics & Gynecology
DX: Z12.4 Encounter for screening for malignant neoplasm of cervix (principal); R85.615 Unsatisfactory cytologic smear of anus
CPT/HCPCS: 87661; G0123

== ENCOUNTER → 2018-11-07 | Outpatient (CLI) | payer OTHER | LOC: M LAB 09:19 | PROVIDERS: ATTEND Obstetrics & Gynecology | DX: Z15.09 Genetic susceptibility to other malignant neoplasm (principal); Z80.0 Family history of malignant neoplasm of digestive organs; Z80.3 Family history of malignant neoplasm of breast; Z80.8 Family history of malignant neoplasm of other organs or systems ==

== ENCOUNTER → 2018-12-16 | Outpatient (REF) | payer OTHER ==
[2018-12-21 16:11] LABS: HPV HYBRID CAPTURE II Negative (Negative)
== END ==
LOC: M LAB REF 14:18
PROVIDERS: ATTEND Obstetrics & Gynecology
DX: R87.615 Unsatisfactory cytologic smear of cervix (principal)

== ENCOUNTER → 2019-02-17 | Outpatient (REF) | payer OTHER ==
[~2019-02-17] MED LIST changes: +ZANT150T40 PO; -ZANTTAB PO
== END ==
LOC: M SMT 13:03
PROVIDERS: ATTEND Urology
DX: R30.0 Dysuria (principal)

== ENCOUNTER → 2021-11-04 | Outpatient (REF) | payer BC, OTHER ==
[~2021-11-04] MED LIST changes: -OMEP40CA2 PO; +OMEP40CA4 PO
[2021-11-04 15:45] LABS: GC DNA AMPLIFICATION NEGATIVE (NEGATIVE)
== END ==
LOC: M SFHCWAGY 12:47
PROVIDERS: ATTEND Obstetrics & Gynecology
DX: Z12.4 Encounter for screening for malignant neoplasm of cervix (principal); Z11.3 Encounter for screening for infections with a predominantly sexual mode of transmission
CPT/HCPCS: 87624; 87661; 87810; 87850; G0123

== ENCOUNTER → 2022-11-03 | Outpatient (CLI) | payer BC, OTHER, SELFPAY ==
[2022-11-03 15:42] LABS: HEMATOCRIT 39.1 % (36.0-47.0); HEMOGLOBIN 13.4 g/dl (12.0-15.5); MEAN CORPUSCULAR HEMOGLOBIN 30.5 pg (27.0-33.0); MEAN CORPUSCULAR HGB CONC 34.3 g/dl (32.0-36.5); MEAN CORPUSCULAR VOLUME 88.9 fl (80.0-96.0); PLATELET COUNT, AUTOMATED 299 10^3/uL (150-450); WHITE BLOOD COUNT 12.8 10^3/uL (4.0-10.0)
[2022-11-03 15:56] LABS: HEMOGLOBIN A1c 4.7 % (4.0-6.0)
[2022-11-03 16:08] LABS: THYROID STIMULATING HORMONE 1.864 uIU/ML (0.55-4.78)
[2022-11-03 16:44] LABS: HIV 1&2 SCREEN CENTAUR NEGATIVE (NEGATIVE)
[2022-11-03 19:19] LABS: GC DNA AMPLIFICATION NEGATIVE (NEGATIVE)
== END ==
LOC: M PLALAB 14:15
PROVIDERS: ATTEND Obstetrics & Gynecology
DX: O34.211 Maternal care for low transverse scar from previous cesarean delivery (principal)

== ENCOUNTER → 2023-01-27 | Outpatient (CLI) | payer BC | LOC: M WHC 10:14 | PROVIDERS: ATTEND Obstetrics & Gynecology | DX: O98.512 Other viral diseases complicating pregnancy, second trimester (principal); Z3A.20 20 weeks gestation of pregnancy ==

== ENCOUNTER → 2023-04-22 | Outpatient (CLI) | payer BC | LOC: M WHC 14:07 | PROVIDERS: ATTEND Obstetrics & Gynecology | DX: O09.293 Supervision of pregnancy with other poor reproductive or obstetric history, third trimester (principal); Z3A.33 33 weeks gestation of pregnancy ==

== ENCOUNTER → 2023-05-04 | Outpatient (REF) | payer BC | LOC: M PLALAB 15:54 | PROVIDERS: ATTEND Advanced Practice Midwife | DX: B37.31 Acute candidiasis of vulva and vagina (principal); Z53.9 Procedure and treatment not carried out, unspecified reason ==

== ENCOUNTER → 2023-05-18 | Outpatient (REF) | payer BC | LOC: M SFHCWAGY 16:57 | PROVIDERS: ATTEND Specialist | DX: Z34.83 Encounter for supervision of other normal pregnancy, third trimester (principal) ==

== ENCOUNTER 2023-05-31 18:48 | Outpatient (CLI) | payer BC ==
[~2023-05-31] VITALS: Ht 165.1 cm; Wt 101.6 kg
[~2023-05-31 18:48] MED LIST changes: +MIRA3350 PO; +PEPC1TAB5 PO; +VALA1TAB5 PO
[2023-05-31] MEDS ORDERED: HOME MED LIST COMPLETE! XX SCH (19:15)
[2023-05-31 19:22] VITALS: BP 120/77
[2023-05-31 20:01] VITALS: BP 134/74
== END 2023-05-31 20:30 | disposition home or self-care (01) ==
LOC: M LDO 18:48
PROVIDERS: ATTEND Advanced Practice Midwife
DX: O26.893 Other specified pregnancy related conditions, third trimester (principal); R03.0 Elevated blood-pressure reading, without diagnosis of hypertension; O34.211 Maternal care for low transverse scar from previous cesarean delivery; Z3A.37 37 weeks gestation of pregnancy
CPT/HCPCS: 59025; G0463